=== PATIENT | female | born 1970 | race Caucasian/White ===

== ENCOUNTER 2018-01-20 10:20 | Emergency (ER) | payer OTHER ==
[2018-01-20 12:15] VITALS: BP 141/90
--- NOTE | 2018-01-20 12:23 | ED Physician Documentation ---
PD HPI UPPER EXT INJURY - Stated complaint Stated Complaint: FINGER NUMB/DISCOLORATION - Chief complaint Chief Complaint: Ext Problem - History obtained from History obtained from: Patient - History of Present Illness Location: Right (This is A 47-year-old woman with long-standing history of autoimmune disease including rheumatoid arthritis and Sjogren's. She is on a base dose of prednisone usually around 5 mg. Because of increasing symptoms she increased to 15 recently. She noticed over the last 4 days or so that her right index finger is cold and feels disconnected from her body and is very sensitive. 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: Tubal ligation HEENT: Tonsil/Adenoidectomy - Present Medications Home Medications: Ambulatory Orders Medication Instructions Recorded Confirmed Cetirizine HCl/Pseudoephedrine 01/20/18 01/20/18 [Zyrtec-D Tablet] DULoxetine [Cymbalta] 01/20/18 Diltiazem HCl [Diltiazem 24Hr ER] 120 mg PO DAILY #30 cap.sa.24h 01/20/18 Famotidine 01/20/18 Gabapentin 01/20/18 Ibuprofen 01/20/18 Prednisone 01/20/18 Spironolactone 01/20/18 busPIRone [Buspar] 01/20/18 - Allergies Allergies/Adverse Reactions: Allergies Allergy/AdvReac Type Severity Reaction Status Date / Time amlodipine Allergy Hives Verified 01/20/18 10:30 Sulfa (Sulfonamide Allergy Hives Verified 01/20/18 10:29 Antibiotics) - Social History Does the pt smoke?: No Smoking Status: Never smoker Does the pt drink ETOH?: No Does the pt have substance abuse?: No - Immunizations Immunizations are current?: No Immunizations: TDAP >10years/unknown, Other immun current PD ED PE NORMAL - Vitals Vital signs reviewed: Yes - General General: Alert and oriented X 3, No acute distress - HEENT HEENT: PERRL, EOMI - Neck Neck: Supple, no meningeal sign, No bony TTP - Cardiac Cardiac: RRR, No murmur - Respiratory Respiratory: No respiratory distress, Clear bilaterally - Abdomen Abdomen: Soft, Non tender - Back Back: No CVA TTP, No spinal TTP - Derm Derm: Normal color, Warm and dry - Extremities Extremities: Other (The right index finger does not feel particularly cold compared to the finger surrounding it, there is a tiny bit of skin breakdown on the nailbed. I do not appreciate a cap refill. As a test I put the pulse oximeter on the third finger and noted a very good waveform, was unable to get any waveform on the second finger.) - Neuro Neuro: Alert and oriented X 3, Normal speech - Psych Psych: Normal mood, Normal affect Results - Vitals Vitals: Vital Signs - 24 hr 01/20/18 01/20/18 10:25 12:14 Temperature 37.1 C 37.0 C Heart Rate 115 H 96 Respiratory 18 18 Rate Blood Pressure 128/93 H 141/90 H O2 Saturation 98 100 Oxygen O2 Source Room air PD MEDICAL DECISION MAKING - ED course ED course: Initially I spoke with her immunology teacher, Dr. Macias is associated with formerly [facility] who recommended vascular surgery consult, [facility] was paged for that at 12:32 PM. They requested pulse oximetry on all of the digits of that hand. The nurse was able to get a value, the right thumb was 90% which is questionable because her pulse rate was only 61 on that. The rest of the digits had pulse rates of about 90, the second digit had a pulse oximetry of 88%, the third through fifth digits all read at 100%. Spoke with Dr Bradford, vasc surgery at [facility], who feels this can be seen as outpt, recommends atsrt Ca-Ch corrina such as nifedipine in the interim. - Sepsis Event Vital Signs: Vital Signs - 24 hr 01/20/18 01/20/18 10:25 12:14 Temperature 37.1 C 37.0 C Heart Rate 115 H 96 Respiratory 18 18 Rate Blood Pressure 128/93 H 141/90 H O2 Saturation 98 100 Oxygen O2 Source Room air Departure - Departure Disposition: 01 Home, Self Care Clinical Impression: Ischemia of digits of hand Condition: Good Record reviewed to determine appropriate education?: Yes Prescriptions: Diltiazem HCl [Diltiazem 24Hr ER] 120 mg PO DAILY #30 cap.sa.24h Comments: The vascular surgeon at [facility] recommended starting a calcium channel corrina, I have chosen diltiazem since you have a listed allergy to amlodipine, They are unrelated. They should be calling you to arrange for an appointment at [facility] vascular/hand clinic, if you do not hear from them by Saturday call them at [phone]
[2018-01-20 13:01] LABS: BILIRUBIN,URINE NEGATIVE (NEGATIVE); GLUCOSE, URINE (UA) NEGATIVE (NEGATIVE); KETONES,URINE (UA) NEGATIVE (NEGATIVE); LEUKOCYTE ESTERASE, URINE NEGATIVE (NEGATIVE); NITRITE,URINE NEGATIVE (NEGATIVE); OCCULT BLOOD,URINE NEGATIVE (NEGATIVE); PH,URINE 6.5 PH (5.0-7.5); PROTEIN,URINE NEGATIVE (NEGATIVE); UROBILINOGEN,URINE 0.2 (NORMAL) E.U./dL (NORMAL)
[2018-01-20 13:03] LABS: CLARITY,URINE CLEAR (CLEAR); HCG UR QUAL NEGATIVE
[2018-01-20 13:19] LABS: BASOPHILS % (AUTO) 0.9 %; EOSINOPHILS % (AUTO) 0.1 %; HGB - HEMOGLOBIN 7.3 g/dL (12.0-16.0); MEAN CORPUSCULAR HEMOGLOBIN 18.6 pg (27.0-31.0); MEAN PLATELET VOLUME 7.1 fL (7.9-10.8); MONOCYTES % (AUTO) 3.5 %; NEUTROPHILS % (AUTO) 78.5 %; PLT - PLATELET COUNT 327 10^3/uL (130-450); RED BLOOD COUNT 3.91 10^6/uL (4.20-5.40); RED CELL DISTRIBUTION WIDTH 19.5 % (12.0-15.0); WHITE BLOOD COUNT 5.3 x10^3/uL (4.8-10.8)
[2018-01-20 13:25] LABS: PT - PROTHROMBIN TIME 11.5 secs (9.9-12.6)
[2018-01-20 13:35] LABS: BILIRUBIN,TOTAL 0.5 mg/dL (0.2-1.0); CALCIUM 9.1 mg/dL (8.5-10.3); CREATININE 1.1 mg/dL (0.4-1.0); TOTAL PROTEIN 8.1 g/dL (6.7-8.2)
[2018-01-20 14:28] LABS: ABNORMAL LYMPHS % (MANUAL) 0 %; BAND NEUTROPHILS % (MANUAL) 0 %
[2018-01-20 14:31] LABS: LYMPHOCYTES # (MANUAL) 0.6 10^3/uL (1.5-3.5); LYMPHOCYTES % (MANUAL) 11 %; MONOCYTES # (MANUAL) 0.2 10^3/uL (0.0-1.0); NEUTROPHILS # (MANUAL) 4.5 10^3/uL (1.5-6.6); NEUTROPHILS % (MANUAL) 85 %
[2018-01-20 14:34] LABS: DIFFERENTIAL COMMENT MANUAL DIFFERENTIAL
== END 2018-01-20 13:42 | disposition home or self-care (01) ==
LOC: ED 10:20
DX: I99.8 Other disorder of circulatory system (principal); M06.9 Rheumatoid arthritis, unspecified; M35.00 Sjogren syndrome, unspecified; I10 Essential (primary) hypertension
CPT/HCPCS: 36415; 80053; 81001; 81003; 81025; 83690; 85025; 85610; 85730; 87086; 99283

== ENCOUNTER 2018-03-24 21:12 | Outpatient (CLI) | payer OTHER | END 2018-03-24 21:13 | disposition critical access hospital (66) | LOC: EMS 21:12 | PROVIDERS: ATTEND Surgery | DX: R51 Headache (principal); R11.2 Nausea with vomiting, unspecified | CPT/HCPCS: A0425; A0427 ==

== ENCOUNTER 2018-03-24 21:28 | Emergency (ER) | payer OTHER ==
[2018-03-24] MEDS ORDERED: PROCHLORPERAZINE 10 MG/2 ML VIAL IVP STA (22:06)
[2018-03-24] MEDS ORDERED: KETOROLAC 60 MG/2 ML VIAL IVP STA (22:06)
[2018-03-24] MEDS ORDERED: DEXAMETHASONE 10 MG/ML VIAL IVP STA (22:06)
[2018-03-24] MEDS ORDERED: diphenhydrAMINE INJ 50 MG/ML VIAL IVP STA (22:06)
[2018-03-24] MEDS ORDERED: SODIUM CHLORIDE 0.9% 1,000 ML IV ONE (22:06)
--- NOTE | 2018-03-24 22:09 | ED Physician Documentation ---
PD HPI HEADACHE - Stated complaint Stated Complaint: N/V - Chief complaint Chief Complaint: Neuro - History obtained from History obtained from: Patient, Family - History of Present Illness Timing - onset: How many days ago (3) Timing - onset during: Rest Timing - duration: Days (3) Timing - details: Gradual onset, Still present Location: Right Quality: Other (pressure) Associated symptoms: Nausea, Vomiting. No: Fever, Stiff neck, Weakness, Numbness, Syncope, Seizure, Eye pain, Vision changes Improved by: Rest, Quiet Worsened by: Light, Noise, Moving Contributing factors: No: Anticoagulated Similar symptoms before: Diagnosis (migraine) Recently seen: Not recently seen - Additional information Additional information: 46-year-old female with a history of autoimmune disease who is dependent on prednisone has had a 3-day history of headache on the right side of her head with pressure sensation and she is now developed nausea and vomiting. She has had a history of migraine headache and she has had a prior migraine complicated by ischemic stroke related to the use of Imitrex. Review of Systems Constitutional: denies: Fever Eyes: reports: Photophobia. denies: Loss of vision, Decreased vision Ears: denies: Ear pain Nose: denies: Rhinorrhea / runny nose, Congestion Throat: denies: Sore throat Cardiac: denies: Chest pain / pressure, Palpitations Respiratory: denies: Dyspnea, Cough GI: reports: Abdominal Pain, Nausea, Vomiting : denies: Dysuria, Frequency Skin: denies: Rash Musculoskeletal: denies: Neck pain, Back pain, Extremity pain Neurologic: reports: Headache. 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 HEENT: Tonsil/Adenoidectomy - Present Medications Home Medications: Ambulatory Orders Medication Instructions Recorded Confirmed Gabapentin 300 mg PO TID 01/20/18 Prednisone 10 mg PO DAILY 01/20/18 Spironolactone 25 mg PO DAILY 01/20/18 busPIRone [Buspar] 12.5 mg PO BID 01/20/18 Cyclobenzaprine HCl 5 mg PO TID 03/24/18 03/24/18 Duloxetine HCl 90 mg PO DAILY 03/24/18 03/24/18 Esomeprazole Magnesium 20 mg PO BID 03/24/18 03/24/18 Famotidine 1 tab PO BID 03/24/18 03/24/18 NIFEdipine [Nifedipine ER] 30 mg PO DAILY 03/24/18 03/24/18 Prednisone [Madelaine] 1 mg PO DAILY 03/24/18 03/24/18 - Allergies Allergies/Adverse Reactions: Allergies Allergy/AdvReac Type Severity Reaction Status Date / Time amlodipine Allergy Hives Verified 03/24/18 22:06 Sulfa (Sulfonamide Allergy Hives Verified 03/24/18 22:06 Antibiotics) - Social History Does the pt smoke?: No Smoking Status: Never smoker Does the pt drink ETOH?: No Does the pt have substance abuse?: No - Immunizations Immunizations are current?: No Immunizations: TDAP >10years/unknown, Other immun current - POLST Patient has POLST: No PD ED PE NORMAL - Vitals Vital signs reviewed: Yes (hypertensive) - General General: Alert and oriented X 3, Well developed/nourished, Other (appears to be in pain with technical director tone and flat affect. ) - HEENT HEENT: Atraumatic, PERRL, EOMI, Ears normal, Moist mucous membranes, Pharynx benign, Dentition benign - Neck Neck: Supple, no meningeal sign, No bony TTP - Cardiac Cardiac: RRR, No murmur - Respiratory Respiratory: No respiratory distress, Clear bilaterally - Abdomen Abdomen: Soft, Non tender - Back Back: No CVA TTP, No spinal TTP - Derm Derm: Normal color, Warm and dry, No rash - Extremities Extremities: No deformity, Normal ROM s pain - Neuro Neuro: Alert and oriented X 3, packaging assembler 2-12 intact, No motor deficit, No sensory d eficit, Normal speech Eye Opening: Spontaneous Motor: Obeys Commands Verbal: Oriented GCS Score: 15 - Psych Psych: Normal mood, Other (flat affect) Results - Vitals Vitals: Vital Signs - 24 hr 03/24/18 21:30 Temperature 36.0 C L Heart Rate 64 Respiratory 18 Rate Blood Pressure 172/102 H O2 Saturation 100 Oxygen O2 Source Room air - Rads (name of study) CT head without Radiology: Prelim report reviewed (Impression: No acute intracranial process.), EMP read indepedently, See rad report PD MEDICAL DECISION MAKING - ED course Complexity details: reviewed old records, reviewed results, re-evaluated patient, considered differential, d/w patient, d/w family ED course: 47-year-old female with a history of migraine headaches has had a severe headache for the past 3 days and nausea and vomiting associated with this. She is administered a cocktail of saline Compazine Benadryl Toradol and dexamethasone and has some improvement of her headache and has further improvement with use of Dilaudid and Zofran. She has near complete resolution of her symptoms a CT scan of her head was obtained and this was without evidence of acute abnormality. She feels ready to go home. - Sepsis Event Vital Signs: Vital Signs - 24 hr 03/24/18 21:30 Temperature 36.0 C L Heart Rate 64 Respiratory 18 Rate Blood Pressure 172/102 H O2 Saturation 100 Oxygen O2 Source Room air Departure - Departure Disposition: 01 Home, Self Care Clinical Impression: Migraine Qualifiers: Migraine type: without aura Status migrainosus presence: without status migrainosus Intractability: not intractable Qualified Code(s): G43.009 - Migraine without aura, not intractable, without status migrainosus Condition: Stable Instructions: ED Headache Migraine Follow-Up: SHIRA PICHARDO MD [Primary Care Provider] -
[2018-03-24] MEDS ORDERED: HYDROmorphone 1 MG/ML CARPUJECT IVP STA (23:07)
[2018-03-24] MEDS ORDERED: ONDANSETRON 4 MG/2 ML VIAL IVP STA (23:07)
--- NOTE | 2018-03-24 23:07 | CT Report ---
Reason: right parietal pressure/vomiting Procedure Date: 03/24/2018 Accession Number: [id number] / [id number] Procedure: CT - Head W/O CPT Code: FULL RESULT: EXAM: CT HEAD EXAM DATE: 03/24/2018 10:30 PM. CLINICAL HISTORY: Headache, nausea, vomiting. COMPARISON: None. TECHNIQUE: Multiaxial CT images were obtained from the foramen magnum to the vertex. Reformats: Sagittal and coronal. IV contrast: None. In accordance with CT protocol optimization, one or more of the following dose reduction techniques were utilized for this exam: automated exposure control, adjustment of mA and/or KV based on patient size, or use of iterative reconstructive technique. FINDINGS: Parenchyma: No intraparenchymal hemorrhage. No evidence of mass, midline shift, or CT findings of infarction. Jaime-white differentiation is distinct. Extraaxial Spaces: There is expansion of the subarachnoid spaces in the bilateral frontal lobes from underlying volume loss. No acute subdural or epidural collections identified. Ventricles: Normal in size and position. Sinuses and Orbits: Imaged paranasal sinuses, orbits, and mastoids show no significant abnormality. Bones: No evidence of fracture or calvarial defect. IMPRESSION: No acute intracranial process. RADIA
[2018-03-25 00:19] VITALS: BP 141/89
== END 2018-03-25 00:19 | disposition home or self-care (01) ==
LOC: EDUNIT# → ED 21:28
DX: G43.009 Migraine without aura, not intractable, without status migrainosus (principal); M06.9 Rheumatoid arthritis, unspecified; I70.1 Atherosclerosis of renal artery; E78.00 Pure hypercholesterolemia, unspecified; Z79.52 Long term (current) use of systemic steroids
CPT/HCPCS: 70450; 96374; 96375; 99283; 99284; J1170; J1200

== ENCOUNTER 2018-05-09 15:03 | Outpatient (CLI) | payer OTHER ==
--- NOTE | 2018-05-09 21:38 | MRI Report ---
Reason: HEADACHE Procedure Date: 05/09/2018 Accession Number: [id number] / [id number] Procedure: MRI - Angio Brain W/O (MRA) CPT Code: FULL RESULT: EXAMS: MRI BRAIN WITHOUT CONTRAST. MRA BRAIN WITHOUT CONTRAST. EXAM DATE: 05/09/2018 03:41 PM. CLINICAL HISTORY: HEADACHE. COMPARISON: Prior CT study head 03/24/2018. TECHNIQUE: MRI: Multiplanar, multisequence T1-weighted and fluid-sensitive MRI sequences of the brain were performed. Sequences optimized for routine evaluation. Other: None. Post-processing: None. IV Contrast: None. MRA: Multiplanar, multisequence T1-weighted and fluid-sensitive MRA sequences of the brain were performed. Other: None. Post-processing: Multiplanar 3D MIP reconstructions. IV Contrast: None. Findings: Relevant images are indicated (image number, series number). MRI brain: There is no acute or subacute ischemic change in the brain. There is no hemosiderin deposition in the brain. There is no hemorrhage, mass or midline shift. Basal cisterns, bilateral IACs, bilateral Meckel's caves are clear. Orbital contents negative. Mild patchy bilateral ethmoidal sinus mucosal thickening. There are no suspicious marrow lesions. There is mild brain atrophy. A few bifrontal subcortical areas of white matter disease are present. Empty sella. Midbrain negative. Cranial cervical junction, limited evaluation of her cervical cord negative. Extraocular muscles, optic nerves, orbital apex, optic chiasm negative. MRA brain: Left ICA: Widely patent. Right ICA: Widely patent, right OSMAN supplied through anterior communicating artery, left A1 segment. Right A1 segment appears to be absent. Posterior circulation: Widely patent, minimal left PCOM. Impressions: MRI brain: 1. No acute/subacute ischemic change. 2. Mild brain atrophy. 3. Minimal nonspecific subcortical white matter disease, could be related to history of headaches. 4. Otherwise negative brain/orbits. MRA brain: 1. Patent major arteries of the brain, with normal anatomical variability as described. No aneurysm, dissection, stenosis, AVM. RADIA
--- NOTE | 2018-05-09 21:38 | MRI Report ---
Reason: HEADACHE Procedure Date: 05/09/2018 Accession Number: [id number] / [id number] Procedure: MRI - Brain W/O CPT Code: FULL RESULT: EXAMS: MRI BRAIN WITHOUT CONTRAST. MRA BRAIN WITHOUT CONTRAST. EXAM DATE: 05/09/2018 03:41 PM. CLINICAL HISTORY: HEADACHE. COMPARISON: Prior CT study head 03/24/2018. TECHNIQUE: MRI: Multiplanar, multisequence T1-weighted and fluid-sensitive MRI sequences of the brain were performed. Sequences optimized for routine evaluation. Other: None. Post-processing: None. IV Contrast: None. MRA: Multiplanar, multisequence T1-weighted and fluid-sensitive MRA sequences of the brain were performed. Other: None. Post-processing: Multiplanar 3D MIP reconstructions. IV Contrast: None. Findings: Relevant images are indicated (image number, series number). MRI brain: There is no acute or subacute ischemic change in the brain. There is no hemosiderin deposition in the brain. There is no hemorrhage, mass or midline shift. Basal cisterns, bilateral IACs, bilateral Meckel's caves are clear. Orbital contents negative. Mild patchy bilateral ethmoidal sinus mucosal thickening. There are no suspicious marrow lesions. There is mild brain atrophy. A few bifrontal subcortical areas of white matter disease are present. Empty sella. Midbrain negative. Cranial cervical junction, limited evaluation of her cervical cord negative. Extraocular muscles, optic nerves, orbital apex, optic chiasm negative. MRA brain: Left ICA: Widely patent. Right ICA: Widely patent, right OSMAN supplied through anterior communicating artery, left A1 segment. Right A1 segment appears to be absent. Posterior circulation: Widely patent, minimal left PCOM. Impressions: MRI brain: 1. No acute/subacute ischemic change. 2. Mild brain atrophy. 3. Minimal nonspecific subcortical white matter disease, could be related to history of headaches. 4. Otherwise negative brain/orbits. MRA brain: 1. Patent major arteries of the brain, with normal anatomical variability as described. No aneurysm, dissection, stenosis, AVM. RADIA
== END 2018-05-09 15:04 | disposition home or self-care (01) ==
LOC: DI 15:03
PROVIDERS: ATTEND Internal Medicine
DX: G31.9 Degenerative disease of nervous system, unspecified (principal); R90.82 White matter disease, unspecified; R51 Headache
CPT/HCPCS: 70544; 70551

== ENCOUNTER 2018-12-23 14:37 | Emergency (ER) | payer OTHER ==
[2018-12-23 14:45] VITALS: BP 150/109
[2018-12-23] MEDS ORDERED: TETANUS/DIPHTHERIA/PERTUSSIS 0.5 ML SYRINGE IM ONE (14:57)
--- NOTE | 2018-12-23 14:58 | ED Physician Documentation ---
PD HPI UPPER EXT INJURY - Stated complaint Stated Complaint: R FINGER LAC - Chief complaint Chief Complaint: Laceration - History obtained from History obtained from: Patient - History of Present Illness Location: Right, Finger (index) Type of injury: Laceration (mandolin) Where injury occurred: Home Timing - onset: How many hours ago (1) Timing - duration: Hours (1) Timing - details: Abrupt onset Pain level max: 3 Pain level now: 2 Improved by: Rest Worsened by: Moving, Palpating Associated symptoms: No: Weakness, Numbness, Tingling Recently seen: Not recently seen - Additonal information Additional information: Patient is right-handed Review of Systems Constitutional: denies: Fever : denies: Now EGA Neurologic: denies: Focal weakness, Numbness PD PAST MEDICAL HISTORY - Past Medical History Past Medical History: Yes Cardiovascular: Hypertension, High cholesterol Neuro: CVA, Migraines, Other Endocrine/Autoimmune: Other GI: GERD Psych: Depression, Anxiety Musculoskeletal: Rheumatoid arthritis - Past Surgical History Past 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 HEENT: Tonsil/Adenoidectomy - Present Medications Home Medications: Ambulatory Orders Medication Instructions Recorded Confirmed Gabapentin 300 mg PO TID 01/20/18 Prednisone 10 mg PO DAILY 01/20/18 Spironolactone 25 mg PO DAILY 01/20/18 busPIRone [Buspar] 12.5 mg PO BID 01/20/18 Cyclobenzaprine HCl 5 mg PO TID 03/24/18 03/24/18 Duloxetine HCl 90 mg PO DAILY 03/24/18 03/24/18 Esomeprazole Magnesium 20 mg PO BID 03/24/18 03/24/18 Famotidine 1 tab PO BID 03/24/18 03/24/18 NIFEdipine [Nifedipine ER] 30 mg PO DAILY 03/24/18 03/24/18 Prednisone [Madelaine] 1 mg PO DAILY 03/24/18 03/24/18 - Allergies Allergies/Adverse Reactions: Allergies Allergy/AdvReac Type Severity Reaction Status Date / Time amlodipine Allergy Hives Verified 03/24/18 22:06 Sulfa (Sulfonamide Allergy Hives Verified 03/24/18 22:06 Antibiotics) - Social History Does the pt smoke?: No Smoking Status: Never smoker Does the pt drink ETOH?: No Does the pt have substance abuse?: No - Immunizations Immunizations are current?: No Immunizations: TDAP >10years/unknown, Other immun current - POLST Patient has POLST: No PD ED PE NORMAL - Vitals Vital signs reviewed: Yes - General General: Alert and oriented X 3, No acute distress - HEENT HEENT: Moist mucous membranes - Derm Derm: Warm and dry - Extremities Extremities: Other (Small flap laceration to the tip of the right index finger. Neurovascularly intact.) - Neuro Neuro: Alert and oriented X 3 Results - Vitals Vitals: Vital Signs - 24 hr 12/23/18 14:42 Temperature 36.5 C Heart Rate 100 Respiratory 16 Rate Blood Pressure 150/109 H O2 Saturation 98 Oxygen O2 Source Room air Procedures - Laceration (location) Right index finger Length in cm: 0.5 Wound type: Curved, Flap, Clean Neurovascular status: Sensory intact, Motor intact, Vascular intact Tendon involvement: Tendon intact Wound Preparation: Irrigated copiously NS Skin layer closure: Dermabond Other: Patient tolerated well, No complications, Neurovascular intact, Dressing applied, Tetanus booster given (Tdap) Complexity: Simple PD MEDICAL DECISION MAKING - ED course Complexity details: considered differential, d/w patient ED course: Patient with a small near complete avulsion of the distal aspect of her phalanx on the right index finger. No bony involvement. Too thin to hold a stitch. Dermabond was used and a finger cage placed. Patient counseled that this may necrosis and off. Warnings of infection and instructions on wound care given at bedside. Also counseled on how to minimize scarring. Patient counseled regarding signs and symptoms for which I believe and urgent re-evaluation would be necessary. Patient with good understanding of and agreement to plan and is comfortable going home at this time This document was made in part using voice recognition software. While efforts are made to proofread this document, sound alike and grammatical errors may occur. Departure - Departure Disposition: 01 Home, Self Care Clinical Impression: Finger laceration Qualifiers: Encounter type: initial encounter Finger: index finger Damage to nail status: without damage Foreign body presence: without foreign body Laterality: right Qualified Code(s): S61.210A - Laceration without foreign body of right index finger without damage to nail, initial encounter Condition: Good Instructions: ED Laceration Hand Follow-Up: SHIRA PICHARDO MD [Primary Care Provider] - Within 1 week Comments: Keep the wound clean. Return if you worsen. Return for redness, swelling or drainage from the wound. The small flap of skin may turn necrotic and . This may also graft back and heal well. Discharge Date/Time: 12/23/18 15:26
== END 2018-12-23 15:26 | disposition home or self-care (01) ==
LOC: ED 14:37
DX: S61.210A Laceration without foreign body of right index finger without damage to nail, initial encounter (principal); W45.8XXA Other foreign body or object entering through skin, initial encounter; Y92.009 Unspecified place in unspecified non-institutional (private) residence as the place of occurrence of the external cause; I10 Essential (primary) hypertension
CPT/HCPCS: 12001; 90471

== ENCOUNTER 2022-03-07 07:35 | Outpatient (CLI) | payer OTHER | END 2022-03-07 07:36 | disposition E | LOC: EMS 07:35 ==